=== PATIENT | male | born 1955 | race Caucasian/White ===

== ENCOUNTER 2018-09-26 19:56 | Outpatient (REF) | payer OTHER, SELFPAY ==
[2018-09-26 20:46] LABS: ALT 50 U/L (12-78); AST 29 U/L (15-37); Albumin 3.8 g/dL (3.4-5.0); Alkaline Phosphatase 61 U/L (46-116); Anion Gap 8.4 mmol/L (3-11); BUN 19 mg/dL (7-18); Bilirubin, Total 0.9 mg/dL (0.2-1.0); CO2 28.6 mmol/L (21.0-32.0); Calcium 8.9 mg/dL (8.5-10.1); Chloride 103 mmol/L (98-107); Cholesterol 204 mg/dL (50-200); Glucose 102 mg/dL (70-100); HDL Cholesterol 45 mg/dL (40-60); LDL CHOLESTEROL 140 mg/dL (<100); Potassium 4.4 mmol/L (3.5-5.1); Sodium 140 mmol/L (136-145); Total Protein 7.5 g/dL (6.4-8.2); Triglyceride 103 mg/dL (30-150)
[2018-09-28 10:45] LABS: PSA, Screening 2.3 ng/ml (0-4.5)
== END 2018-09-26 20:16 ==
LOC: NCHCN 19:56
PROVIDERS: PCP Specialist/Technologist Athletic Trainer; Visit Provider Specialist/Technologist Athletic Trainer
DX: Z00.00 Encounter for general adult medical examination without abnormal findings (principal); Z13.220 Encounter for screening for lipoid disorders; Z13.228 Encounter for screening for other metabolic disorders; Z12.5 Encounter for screening for malignant neoplasm of prostate; E66.9 Obesity, unspecified
CPT/HCPCS: 80053; 80061; 83721; 84153

== ENCOUNTER 2019-05-07 14:11 | Outpatient (REF) | payer OTHER, SELFPAY ==
[2019-05-07 22:21] LABS: HCT 44.8 % (40.0-50.0); HGB 14.9 g/dL (13.5-17.5); Mean Corp. HGB Concentration 33.3 g/dL (32.0-36.0); Mean Corpuscular Hemoglobin 31.3 pg (27.0-33.0); Mean Corpuscular Volume 94.1 fL (80-95); Mean Platelet Volume 9.6 fL (8.0-11.0); Platelet Count 324 x1000/uL (130-400); RBC 4.76 m/cumm (4.50-6.00); White Blood Cell Count 6.45 k/cumm (4.4-10.8)
[2019-05-07 23:23] LABS: ALT 46 U/L (16-63); AST 19 U/L (15-37); Albumin 3.9 g/dL (3.4-5.0); Alkaline Phosphatase 84 U/L (46-116); Anion Gap 9.1 mmol/L (3-11); BUN 14 mg/dL (7-18); Bilirubin, Total 0.5 mg/dL (0.2-1.0); CO2 24.9 mmol/L (21.0-32.0); CREATININE 0.86 mg/dL (0.70-1.30); Calcium 8.9 mg/dL (8.5-10.1); Calculated LDL 111 mg/dL; Chloride 105 mmol/L (98-107); Cholesterol 202 mg/dL (50-200); Glucose 105 mg/dL (70-100); HDL Cholesterol 40 mg/dL (40-60); Magnesium 1.7 mg/dL (1.8-2.4); Potassium 4.1 mmol/L (3.5-5.1); Sodium 139 mmol/L (136-145); Total Protein 7.3 g/dL (6.4-8.2); Triglyceride 258 mg/dL (30-150)
[2019-05-09 11:04] LABS: PSA, Screening 1.4 ng/ml (0-4.5)
== END 2019-05-07 14:31 ==
LOC: NCHCN 14:11
PROVIDERS: PCP Specialist/Technologist Athletic Trainer; Visit Provider Specialist/Technologist Athletic Trainer
DX: Z00.00 Encounter for general adult medical examination without abnormal findings (principal); Z13.228 Encounter for screening for other metabolic disorders; Z13.0 Encounter for screening for diseases of the blood and blood-forming organs and certain disorders involving the immune mechanism; Z13.220 Encounter for screening for lipoid disorders; Z12.5 Encounter for screening for malignant neoplasm of prostate
CPT/HCPCS: 80053; 80061; 84153; 85027; 83735

== ENCOUNTER 2019-10-16 12:13 | Outpatient (REF) | payer BC, SELFPAY ==
[2019-10-17 11:59] LABS: Campylobacter PCR Negative (Negative); Salmonella PCR Negative (Negative); Shiga Toxin PCR Negative (Negative); Shigella/Enteroinvasive Ecoli Negative (Negative)
== END 2019-10-16 12:33 ==
LOC: NCHCN 12:13
PROVIDERS: PCP Specialist/Technologist Athletic Trainer; Visit Provider Family Medicine
DX: R19.7 Diarrhea, unspecified (principal)
CPT/HCPCS: 87505; 87324

== ENCOUNTER 2021-03-12 06:21 | Emergency (ER) | payer BC, SELFPAY ==
[2021-03-12] VITALS (19 sets, daily range): BP systolic 123–145; BP diastolic 70–109; PULSE 52–89; RESP 10–18; TEMP 36.5; O2SAT 97–100
--- NOTE | 2021-03-12 06:30 | DI.CT_ITS ---
Exam(s) CT CHEST/ABD/PEL W EXAM: CT CHEST/ABD/PEL W CLINICAL HISTORY: fall, pain. TECHNIQUE: Imaging Protocol: Axial computed tomography images with coronal and sagittal reformatted images were created and reviewed CONTRAST MATERIAL: Intravenous: Omnipaque 350 Contrast volume:100 ml Oral: no COMPARISON: No exams were available for comparison FINDINGS: CHEST: Tracheobronchial tree: Patent where visualized. Mediastinum and Katrina: No dominant adenopathy or fluid collection. Pulmonary parenchyma: No consolidation or dominant measurable mass. Pleura: No effusion or pneumothorax. Lymph nodes: Within normal limits. Aorta: Thoracic portion non-dilated. Heart: Normal size. Bones: Unremarkable for age. Degenerative changes and mild scoliosis. No lytic or blastic lesions. ABDOMEN: Liver: Normal density. No measurable mass. Gallbladder and biliary tract: No radiodense calculus or dilation. Pancreas: Normal density, no abnormal calcifications or inflammatory process. Spleen: Normal. Kidneys: Normal size, contour and axis. No radiodense stones or obstructive uropathy. Cyst lower bhanu e left kidney. No masses seen. Adrenal glands: No masses seen. Aorta: Abdominal portion non-dilated. Lymph nodes: Within normal limits. Soft tissues: Unremarkable. PELVIS: Bladder: Symmetric distention, no gross wall thickening. Bowel: No obstruction or bowel wall thickening. Appendix normal. Peritoneal cavity: No ascites, collection or mesenteric inflammatory response. Bones: Unremarkable for age.. Degenerative changes. No evidence of fracture. Reproductive organs: Mildly enlarged prostate. Soft tissues: Fat in both inguinal canals. IMPRESSION: No acute abnormality in the chest abdomen or pelvis.. RADIATION DOSE DELIVERED: Total DLP DATA REPOSITORY: All CT scans at this facility are submitted to the National Radiology Data Registry (NRDR) Dose Index Registry (DIR) with the [employer] (A[employer]). RADIATION OPTIMIZATION: All CT scans at this facility use at least one of these dose optimization te chniques: automated exposure control; mA and/or kV adjustment per patient size (includes targeted exa ms where dose is matched to clinical indication); or iterative reconstruction.
--- NOTE | 2021-03-12 06:30 | DI.RAD_ITS ---
Exam(s) XR ELBOW LT COMPLETE EXAM: XR ELBOW LT COMPLETE CLINICAL HISTORY: fall, pain and swelling. TECHNIQUE: 2D digital imaging was performed. COMPARISON: No exams were available for comparison FINDINGS: BONES: No acute fracture is present. No bony destructive lesion is seen. Small spur posterior olecr anon. JOINTS: The elbow is normally aligned. No joint effusion is seen. SOFT TISSUE: Posterior soft tissue swelling. IMPRESSION: No acute bony abnormality.. DATA REPOSITORY: RADIATION DOSE DELIVERED:
--- NOTE | 2021-03-12 06:30 | DI.CT_ITS ---
Exam(s) CT HEAD CERVICAL SPINE WO EXAM: CT HEAD CERVICAL SPINE WO CLINICAL HISTORY: fall, pain at thoracic and low back. TECHNIQUE: Imaging Protocol: Axial computed tomography images with coronal and sagittal reformatted images were created and reviewed COMPARISON: No exams were available for comparison FINDINGS: Head CT Ventricles and Extra axial spaces: Normal in size and morphology for the patient's age. Hemorrhage: None. Cerebral parenchyma: Normal. Midline shift: None. Brainstem/Cerebellum: Normal. Calvarium: Normal. Visualized Paranasal sinuses/Mastoids: Clear. Scalp swelling in the high left parietal region. Cervical Spine CT BONES: Vertebral body heights are maintained. Alignment is normal. There is no evidence of acute frac ture. Degenerative disc changes and facet degenerative changes are seen . SOFT TISSUES: No paraspinal hematoma. The airway appears intact. No pneumothorax is seen at the lung apices. IMPRESSION: Head CT: No acute intracranial abnormality. C-spine CT: Degenerative changes, no acute abnormality. RADIATION DOSE DELIVERED: 1,605.8mGy.cm Total DLP DATA REPOSITORY: All CT scans at this facility are submitted to the National Radiology Data Registry (NRDR) Dose Index Registry (DIR) with the [employer] (ACR). RADIATION OPTIMIZATION: All CT scans at this facility use at least one of these dose optimization te chniques: automated exposure control; mA and/or kV adjustment per patient size (includes targeted exa ms where dose is matched to clinical indication); or iterative reconstruction.
--- NOTE | 2021-03-12 06:40 | ED.GENADUL_ITS ---
Discharge Plan Disposition Patient Disposition: HOME Condition: Stable Discharge Details Clinical Impression: Fall at home, Abrasion of head, Closed head injury without loss of consciousness, Abrasion of back, Contusion of back, Contusion of left elbow Primary Care Provider: Duane Bro ED Provider: Dawna Schwab Home Meds and New Rx's Prescriptions: No Action No Known Home Meds RF: 0 Discharge Instructions Instructions: Head Injury (ED), Contusion in Adults (ED), Abrasion (ED), Fall Prevention (ED) Additional Instructions: Drink plenty of fluids and get plenty of rest. Alternate tylenol and motrin as needed and directed for pain. Follow-up with your primary care doctor in 1 week. Return to the emergency department with any worsening or new concerning symptoms. Discharge Data Discharge Physician: Dawna Schwab Medical Decision Making <Federico Mathis MD - Last Filed: 03/12/21 06:45> This is a 65-year-old male who states he therapy use the washroom at home this evening, accidentally stepped out over his stairwell and fell down 14 steps, striking his head and back on the way. He denies loss of consciousness. He has full recall of the event. He came to the hospital with his and ambulated on his own. Patient is well-appearing and interactive. His exam reveals an abrasion on his occiput, patient is swelling to the left elbow, abrasion and pain with palpation of his posterior thorax. Patient IV access established, he had taken acetaminophen at home, was given a small fluid bolus and referred for CT images & radiographs of the left elbow. As he presented just prior to change of shift, patient was signed out to Dr. Schwab. Please see her note regarding details of final impression and disposition. <Dawna Schwab DO - Last Filed: 03/12/21 11:32> 0730 --please see Dr. Mathis's note for additional presentation, exam and plan. Case endorsed to follow-up on imaging and final disposition. Patient states his main complaint of pain is midline upper back. Denies headache at this time. He appears comfortable and breathing normally. He took Tylenol at 3:30 AM. We will give IV Tylenol. 0920 --Imaging reviewed and negative. Labs also done on arrival and note a white blood cell count of 14 which may be a stress response. He has no fever or other acute infectious complaints and appears nontoxic. Remainder of labs unremarkable. Patient reassessed and he feels much better. Patient was able to ambulate and feels good to go home. Advised to follow up with the primary care doctor for re-evaluation. Usual and customary return precautions given prior to discharge. Medical Records Medical records reviewed: Yes I reviewed the patient's medical records. Imaging Data Radiologic Study: Radiologist's impression: CT HEAD CERVICAL SPINE WO CLINICAL HISTORY: fall, pain at thoracic and low back. TECHNIQUE: Imaging Protocol: Axial computed tomography images with coronal and sagittal reformatted images were created and reviewed COMPARISON: No exams were available for comparison FINDINGS: Head CT Ventricles and Extra axial spaces: Normal in size and morphology for the patient's age. Hemorrhage: None. Cerebral parenchyma: Normal. Midline shift: None. Brainstem/Cerebellum: Normal. Calvarium: Normal. Visualized Paranasal sinuses/Mastoids: Clear. Scalp swelling in the high left parietal region. Cervical Spine CT BONES: Vertebral body heights are maintained. Alignment is normal. There is no evidence of acute fracture. Degenerative disc changes and facet degenerative changes are seen . SOFT TISSUES: No paraspinal hematoma. The airway appears intact. No pneumothorax is seen at the lung apices. IMPRESSION: Head CT: No acute intracranial abnormality. C-spine CT: Degenerative changes, no acute abnormality. XR ELBOW LT COMPLETE CLINICAL HISTORY: fall, pain and swelling. TECHNIQUE: 2D digital imaging was performed. COMPARISON: No exams were available for comparison FINDINGS: BONES: No acute fracture is present. No bony destructive lesion is seen. Small spur posterior olecranon. JOINTS: The elbow is normally aligned. No joint effusion is seen. SOFT TISSUE: Posterior soft tissue swelling. IMPRESSION: No acute bony abnormality. CT CHEST/ABD/PEL W CLINICAL HISTORY: fall, pain. TECHNIQUE: Imaging Protocol: Axial computed tomography images with coronal and sagittal reformatted images were created and reviewed CONTRAST MATERIAL: Intravenous: Omnipaque 350 Contrast volume:100 ml Oral: no COMPARISON: No exams were available for comparison FINDINGS: CHEST: Tracheobronchial tree: Patent where visualized. Mediastinum and Katrina: No dominant adenopathy or fluid collection. Pulmonary parenchyma: No consolidation or dominant measurable mass. Pleura: No effusion or pneumothorax. Lymph nodes: Within normal limits. Aorta: Thoracic portion non-dilated. Heart: Normal size. Bones: Unremarkable for age. Degenerative changes and mild scoliosis. No lytic or blastic lesions. ABDOMEN: Liver: Normal density. No measurable mass. Gallbladder and biliary tract: No radiodense calculus or dilation. Pancreas: Normal density, no abnormal calcifications or inflammatory process. Spleen: Normal. Kidneys: Normal size, contour and axis. No radiodense stones or obstructive uropathy. Cyst lower pole left kidney. No masses seen. Adrenal glands: No masses seen. Aorta: Abdominal portion non-dilated. Lymph nodes: Within normal limits. Soft tissues: Unremarkable. PELVIS: Bladder: Symmetric distention, no gross wall thickening. Bowel: No obstruction or bowel wall thickening. Appendix normal. Peritoneal cavity: No ascites, collection or mesenteric inflammatory response. Bones: Unremarkable for age.. Degenerative changes. No evidence of fracture. Reproductive organs: Mildly enlarged prostate. Soft tissues: Fat in both inguinal canals. IMPRESSION: No acute abnormality in the chest abdomen or pelvis.. CT THORACIC LUMBAR SPINE REC CLINICAL HISTORY: s/p fall, midline back pain TECHNIQUE: Axial, coronal and sagittal images were reconstructed in bone algorithm from the chest abdomen and pelvic CT. COMPARISON: No exams were available for comparison FINDINGS: There is no evidence of fracture in the thoracic or lumbar spine. There are endplate osteophytes throughout the thoracic region. There are small osteo phytes in the lumbar region. The discs are spaces are well maintained. Facet degenerative changes are noted in the lower lumbar spine. There is a mild thoracic scoliosis. IMPRESSION: Degenerative changes. No acute abnormality. Lab Data Lab results reviewed: Yes I reviewed the patient's lab results. Labs: Laboratory Tests Range/Units 03/12/21 03/12/21 06:50 06:50 WBC (4.4-10.8) 10^3/uL 14.05 H RBC (4.36-5.78) 10^6/uL 4.66 Hgb (13.5-17.5) g/dL 14.6 Hct (40.0-50.0) % 44.5 MCV (80-95) fL 95.5 H MCH (27.0-33.0) pg 31.3 MCHC (32.0-36.0) % 32.8 RDW (11.8-14.1) % 13.1 Plt Count (130-400) 10^3/uL 244 MPV (8.0-11.0) fL 8.8 Sodium (136-145) mmol/L 141 Potassium (3.5-5.1) mmol/L 4.1 Chloride (98-107) mmol/L 108 H Carbon Dioxide (21.0-32.0) mmol/L 25.7 Anion Gap (3-11) mmol/L 7.3 BUN (7-18) mg/dL 16 Creatinine (0.70-1.30) mg/dL 1.2 Estimated GFR/1.73 m2 (mL/min/1.73m2) >= 60.00 Glucose (74-106) mg/dL 106 Calcium (8.5-10.1) mg/dL 8.5 Total Bilirubin (0.2-1.0) mg/dL 0.5 AST (15-37) U/L 23 ALT (16-63) U/L 35 Alkaline Phosphatase (46-116) U/L 62 Total Protein (6.4-8.2) g/dL 6.8 Albumin (3.4-5.0) g/dL 3.5 HPI <Federico Mathis MD - Last Filed: 03/12/21 06:45> General Mode of arrival: ambulatory . Date/Time Provider Initiated Documentation: 03/12/21 06:30 . Limitations to Documentation: no limitations . Information obtained by: patient . History of Present Illness 65 year old M presents to the emergency department with the chief complaint of Fall downstairs, back pain, described as moderate, Quality is described as dull and constant, and is localized to the head and back. Patient reports no radiation. Patient started experiencing this minute(s) and it has been constant. No relieving factors improve symptom(s), No exacerbating factors reported . Patient did receive the following treatments prior to arrival, none Related Data Home Medications Medication Instructions Recorded Confirmed Unknown [No Known Home Meds] 11/11/13 11/11/13 Allergies Allergy/AdvReac Type Severity Reaction Status Date / Time No Known Allergies Allergy Unverified 11/11/13 18:06 General Stated Complaint: Trauma JAZZY: 2 Review of Systems <Federico Mathis MD - Last Filed: 03/12/21 06:45> Narrative: No loss of consciousness. Primarily complains of thoracic back pain. No current medications or recent illness. 6 systems reviewed and otherwise negative PFSH <Federico Mathis MD - Last Filed: 03/12/21 06:45> Medical History (Updated 03/12/21 @ 11:31 by Dawna Schwab DO) Colitis Surgical History (Updated 03/12/21 @ 11:31 by Dawna Schwab DO) No significant past surgical history Social History Smoking/Tobacco Use Status: Never Smoking risk assessment performed?: Yes Alcohol Intake: current Alcohol Intake frequency: 3 or more drinks per day Drug use: Never Substance use type: does not use Do you feel safe at home: Yes Do you feel safe in your relationship?: Yes Exam <Federico Mathis MD - Last Filed: 03/12/21 06:45> Narrative Exam Narrative: GEN: awake, alert, oriented 3. Pleasant, well groomed, interactive. HEAD: Normocephalic, abrasion superior occiput, no cephalohematoma ENT: Mucous membranes moist, oropharynx unremarkable, External ear exam unremarkable EYES: PERRL, EOMI NECK: Full ROM, no ANA, no menigismus CHEST/RESP: Nontender, clear to auscultation bilateral, no wheeze/rhonchi/rales CARDIOVASCULAR: RRR, no murmur, rub jesse. 2+ Rad pulse bilateral ABDOMEN: Soft, nontender, no mass. +Bowel sounds Back: Lower left paraspinous abrasion, mid thoracic midline pain without step- off or deformity. EXT: Full ROM, left lateral elbow swelling and tenderness to palpation. The joint is freely mobile. Neuro: Grossly normal neurologic exam, conversant, interactive. Psych: Speech fluent, thoughts congruent, affect normal Course <Federico Mathis MD - Last Filed: 03/12/21 06:45> Vital Signs Vital signs: Vital Signs Temperature 36.5 C 03/12/21 06:36 Pulse 65 03/12/21 06:36 Respiratory Rate 14 03/12/21 06:36 Blood Pressure 140/79 03/12/21 06:36 Pulse Oximetry 98 03/12/21 06:36 Temperature 36.5 C 03/12/21 06:36 Temperature Source Temporal Artery Scan 03/12/21 06:36 Pulse 65 03/12/21 06:36 Respiratory Rate 14 03/12/21 06:36 Blood Pressure 140/79 03/12/21 06:36 Blood Pressure Position Sitting 03/12/21 06:36 Pulse Oximetry 98 03/12/21 06:36 Oxygen Delivery Method Room Air 03/12/21 06:36 Oxygen Flow Rate 0 03/12/21 06:36 Pain Level 6 03/12/21 06:36 Sign Out <Federico Mathis MD - Last Filed: 03/12/21 06:45> Sign Out Data: Sign Out Comment: followup ct and xray imaging Last updated by Federico Mathis MD at 03/12/21 06:50
[2021-03-12] MEDS: Normal Saline 500 ML IV (06:55)
[2021-03-12 07:03] LABS: HCT 44.5 % (40.0-50.0); HGB 14.6 g/dL (13.5-17.5); MCH 31.3 pg (27.0-33.0); MCHC 32.8 % (32.0-36.0); MCV 95.5 fL (80-95); MPV 8.8 fL (8.0-11.0); Platelet Count 244 10^3/uL (130-400); RBC 4.66 10^6/uL (4.36-5.78); RDW 13.1 % (11.8-14.1); RDW-SD 46.5 fL; WBC 14.05 10^3/uL (4.4-10.8)
[2021-03-12 07:19] LABS: ALT 35 U/L (16-63); AST 23 U/L (15-37); Albumin 3.5 g/dL (3.4-5.0); Alkaline Phosphatase 62 U/L (46-116); Anion Gap 7.3 mmol/L (3-11); BUN 16 mg/dL (7-18); Bilirubin, Total 0.5 mg/dL (0.2-1.0); CO2 25.7 mmol/L (21.0-32.0); CREATININE 1.2 mg/dL (0.70-1.30); Calcium 8.5 mg/dL (8.5-10.1); Chloride 108 mmol/L (98-107); Glucose 106 mg/dL (74-106); Potassium 4.1 mmol/L (3.5-5.1); Sodium 141 mmol/L (136-145); Total Protein 6.8 g/dL (6.4-8.2)
--- NOTE | 2021-03-12 07:35 | DI.CT_ITS ---
Exam(s) CT THORACIC LUMBAR SPINE REC EXAM: CT THORACIC LUMBAR SPINE REC CLINICAL HISTORY: s/p fall, midline back pain TECHNIQUE: Axial, coronal and sagittal images were reconstructed in bone algorithm from the chest ab domen and pelvic CT. COMPARISON: No exams were available for comparison FINDINGS: There is no evidence of fracture in the thoracic or lumbar spine. There are endplate osteophytes thr oughout the thoracic region. There are small osteophytes in the lumbar region. The discs are spaces are well maintained. Facet degenerative changes are noted in the lower lumbar spine. There is a mi ld thoracic scoliosis. IMPRESSION: Degenerative changes. No acute abnormality.
[2021-03-12] MEDS: Omnipaque 350 MG/ML 100 ML BTL IV (07:53)
[2021-03-12] MEDS: Normal Saline - Diluent 50 ML VIAL IV (07:53)
[2021-03-12] MEDS: ACETAMINOPHEN 1,000 MG/100 ML BTL 400 MG IVPB (08:44)
== END 2021-03-12 09:52 | disposition home or self-care (01) ==
PROVIDERS: Emergency Medicine; Emergency Provider Physician Assistant; PCP Specialist/Technologist Athletic Trainer
DX: S00.81XA Abrasion of other part of head, initial encounter (principal); S30.810A Abrasion of lower back and pelvis, initial encounter; S50.02XA Contusion of left elbow, initial encounter; W10.8XXA Fall (on) (from) other stairs and steps, initial encounter
CPT/HCPCS: 74177; 80053; 85027; 96361; 96365; 99285; 70450; 71260; 72125; 73080; 99284; J0131; J3490

== ENCOUNTER 2021-06-25 10:36 | Outpatient (REF) | payer BC, SELFPAY ==
[2021-06-25 14:26] LABS: Anion Gap 6.1 mmol/L (3-11); BUN 17 mg/dL (7-18); CO2 28.9 mmol/L (21.0-32.0); CREATININE 0.9 mg/dL (0.70-1.30); Calcium 8.8 mg/dL (8.5-10.1); Chloride 108 mmol/L (98-107); Glucose 101 mg/dL (74-106); Potassium 4.8 mmol/L (3.5-5.1); Sodium 143 mmol/L (136-145)
[2021-06-25 14:54] LABS: Hemoglobin A1C 5.4 % (<5.7)
[2021-06-28 01:53] LABS: Vitamin D 25 Total 22.2 ng/mL (30-100)
== END 2021-06-25 10:37 | disposition home or self-care (01) ==
LOC: NCHCN 10:36
PROVIDERS: PCP Specialist/Technologist Athletic Trainer; Visit Provider Nurse Practitioner Family
DX: R73.03 Prediabetes (principal); E55.9 Vitamin D deficiency, unspecified; Z00.00 Encounter for general adult medical examination without abnormal findings
CPT/HCPCS: 80048; 82306; 83036

== ENCOUNTER 2021-11-26 10:42 | Outpatient (REF) | payer MEDICARE, BC, SELFPAY ==
[2021-11-26 14:13] LABS: Calculated LDL 157 mg/dL (<100); Cholesterol 243 mg/dL (<200); HDL Cholesterol 51 mg/dL (40-60); Triglyceride 175 mg/dL (<150)
[2021-11-29 06:43] LABS: Vitamin D 25 Total 17.6 ng/mL (30-100)
== END 2021-11-26 10:43 | disposition home or self-care (01) ==
LOC: NCHCN 10:42
PROVIDERS: PCP Specialist/Technologist Athletic Trainer; Visit Provider Nurse Practitioner Family
DX: Z00.00 Encounter for general adult medical examination without abnormal findings (principal); E55.9 Vitamin D deficiency, unspecified
CPT/HCPCS: 80061; 82306

== ENCOUNTER 2022-11-28 12:58 | Outpatient (REF) | payer MEDICARE, BC, SELFPAY ==
[2022-11-28 17:16] LABS: ALT 41 U/L (16-63); AST 26 U/L (15-37); Albumin 3.9 g/dL (3.4-5.0); Alkaline Phosphatase 70 U/L (46-116); Anion Gap 7.3 mmol/L (3-11); BUN 16 mg/dL (7-18); Bilirubin, Total 0.6 mg/dL (0.2-1.0); CO2 29.7 mmol/L (21.0-32.0); CREATININE 1.1 mg/dL (0.70-1.30); Calcium 9.2 mg/dL (8.5-10.1); Calculated LDL 147 mg/dL (<100); Chloride 109 mmol/L (98-107); Cholesterol 237 mg/dL (<200); Estimated GFR 74.04 (mL/min/1.73m2); Glucose 99 mg/dL (74-106); HDL Cholesterol 48 mg/dL (40-60); Potassium 5.2 mmol/L (3.5-5.1); Sodium 146 mmol/L (136-145); Total Protein 7.9 g/dL (6.4-8.2); Triglyceride 214 mg/dL (<150)
[2022-11-28 17:38] LABS: Vitamin D 25 Total 21.9 ng/mL (30-100)
[2022-11-28 17:42] LABS: Hemoglobin A1C 5.9 % (<5.7)
[2022-11-29 18:46] LABS: PSA, Screening 1.1 ng/mL (<=4.5)
== END 2022-11-28 12:59 | disposition home or self-care (01) ==
LOC: NCHCN 12:58
PROVIDERS: PCP Specialist/Technologist Athletic Trainer; Visit Provider Nurse Practitioner Family
DX: E78.5 Hyperlipidemia, unspecified (principal); R73.03 Prediabetes; E55.9 Vitamin D deficiency, unspecified; N40.0 Benign prostatic hyperplasia without lower urinary tract symptoms; Z12.5 Encounter for screening for malignant neoplasm of prostate
CPT/HCPCS: 80053; 80061; 82306; 84153; 83036

== ENCOUNTER 2023-06-19 18:28 | Outpatient (REF) | payer MEDICARE, BC, SELFPAY ==
[2023-06-19 17:26] LABS: ALT 48 U/L (16-63); AST 25 U/L (15-37); Albumin 3.6 g/dL (3.4-5.0); Alkaline Phosphatase 79 U/L (46-116); Anion Gap 8.5 mmol/L (3-11); BUN 14 mg/dL (7-18); Bilirubin, Total 0.5 mg/dL (0.2-1.0); CO2 26.5 mmol/L (21.0-32.0); Calcium 9.3 mg/dL (8.5-10.1); Calculated LDL 126 mg/dL (<100); Chloride 106 mmol/L (98-107); Cholesterol 222 mg/dL (<200); Estimated GFR 83.01 (mL/min/1.73m2); Glucose 120 mg/dL (74-106); HDL Cholesterol 48 mg/dL (40-60); Potassium 3.9 mmol/L (3.5-5.1); Sodium 141 mmol/L (136-145); Total Protein 7.7 g/dL (6.4-8.2); Triglyceride 244 mg/dL (<150)
[2023-06-19 18:22] LABS: Vitamin D 25 Total 24.4 ng/mL (30-100)
== END 2023-06-19 18:29 | disposition home or self-care (01) ==
LOC: NCHCN 18:28
PROVIDERS: PCP Specialist/Technologist Athletic Trainer; Visit Provider Nurse Practitioner Family
DX: E78.5 Hyperlipidemia, unspecified (principal); E55.9 Vitamin D deficiency, unspecified; H61.23 Impacted cerumen, bilateral
CPT/HCPCS: 80053; 80061; 82306

== ENCOUNTER 2023-12-08 11:04 | Outpatient (REF) | payer MEDICARE, BC, SELFPAY ==
[2023-12-08 15:12] LABS: ALT 59 U/L (16-63); AST 38 U/L (15-37); Albumin 3.7 g/dL (3.4-5.0); Alkaline Phosphatase 81 U/L (46-116); Anion Gap 7.8 mmol/L (3-11); BUN 14 mg/dL (7-18); Bilirubin, Total 0.6 mg/dL (0.2-1.0); CO2 28.2 mmol/L (21.0-32.0); Calcium 8.7 mg/dL (8.5-10.1); Chloride 108 mmol/L (98-107); Estimated GFR 82.49 (mL/min/1.73m2); Glucose 104 mg/dL (74-106); Potassium 4.9 mmol/L (3.5-5.1); Sodium 144 mmol/L (136-145); Total Protein 7.5 g/dL (6.4-8.2)
[2023-12-08 15:43] LABS: Vitamin D 25 Total 23.2 ng/mL (30-100)
== END 2023-12-08 11:05 | disposition home or self-care (01) ==
LOC: NCHCN 11:04
PROVIDERS: PCP Specialist/Technologist Athletic Trainer; Visit Provider Nurse Practitioner Family
DX: E55.9 Vitamin D deficiency, unspecified (principal); R73.03 Prediabetes; M10.9 Gout, unspecified
CPT/HCPCS: 80053; 82306; 83036; 84550

== ENCOUNTER 2024-06-03 14:42 | Outpatient (CLI) | payer MEDICARE, BC, SELFPAY ==
--- NOTE | 2024-06-03 | DI.RAD_ITS ---
Exam(s) XR TIB/FIB RT EXAM: XR TIB/FIB RT CLINICAL HISTORY: HX FALLING Z91.81. TECHNIQUE: 2D digital imaging was performed. COMPARISON: No exams were available for comparison FINDINGS: Two views No evidence of fracture. No radiopaque foreign body. No osseous lesions. Bone density normal. IMPRESSION: No acute osseous findings. DATA REPOSITORY: RADIATION DOSE DELIVERED:
== END 2024-06-03 15:02 ==
LOC: DI 14:42
PROVIDERS: PCP Specialist/Technologist Athletic Trainer; Visit Provider Nurse Practitioner Family
DX: Z91.81 History of falling (principal); M79.661 Pain in right lower leg
CPT/HCPCS: 73590

== ENCOUNTER 2024-09-09 01:49 | Outpatient (CLI) | payer MEDICARE, BC, SELFPAY ==
--- NOTE | 2024-09-09 | ETT_ITS ---
APPROVED REPORT Exam: Exercise Treadmill Patient Location: Out-Patient Room/Bed: Stress Nurse: Rani Nixon RN Ordering Provider:HEIDY LANE, Contact Number: [phone] BMI: 36.17 Baseline Rhythm: Sinus Bradycardia Indications: Chest pain Medical History Medical History: HLD, major depression, alcohol dependence, ulcerative colitis, sleep disorder, BPH, veritgo, chest pain, prediabetes, CAP Cardiac Medications: Colchicine, remicade Allergies: Seafood Cardiac Risk Factors: Family hx, HLD, prediabetes, obesity Previous Cardiac Procedures: None Pretest Chest Pain Characteristics: None Exercise History: Sedentary Physical Disabilities: None Lung Sounds: Clear to auscultation Heart Sounds: Regular Stress Test Details Test: Exercise stress testing was performed using a Abhinav protocol. Rest Stress HR Resting HR Supine: 58 bpm Max Heart Rate (APMHR): 152 bpm Resting HR Standin bpm Target HR (85% APMHR): 129 bpm Max HR Achieved: 133 bpm % of APMHR: 88 Recovery HR: 63 bpm HR response to stress: Normal HR response to stress BP Resting BP Supine: 142/92 mmHg Resting BP Standin/82 mmHg Max BP: 160/88 mmHg Recovery BP: 138/94 mmHg BP response to stress: Normal blood pressure response to stress. ECG Resting ECG: Sinus Bradycardia Ectopy: Rare PAC Stress ECG: Sinus Tachycardia ST Change: No significant ST segment changes noted Arrhythmia: Rare PAC's, rare PVC's Recovery ECG: Sinus Rhythm Recovery ST Change: No significant ST segment changes noted Recovery Arrhythmia: Rare PAC's, rare PVC's Clinical Reason for Termination: Target HR Achieved Stress Symptoms: Mild SOB Exercise duration: 05 min57 sec Highest Stage Reached: Stage 2: 2.5 mph at 12% grade. Exercise capacity: 7.05 METs Angina Score: None Bunch Treadmill Score: 5.7 Rate Pressure Product: [id number] Stress ECG Conclusion 1. Resting electrocardiogram showed left anterior fascicular block and late transition 2. Patient exercised on the Abhinav protocol completed a workload of 7 METS 3. Normal heart rate and blood pressure response to exercise. Patient achieved 88% of predicted hear t rate for age 4. There was no electrocardiographic evidence of myocardial ischemia 5. There were no significant dysrhythmias Bunch Treadmill Score is 5.7 which is Low risk. Stress Test Summary STAGE Time (mins) Speed (mph) Grade (%) HR BP SpO2 SYMPTOMS METS Supine 58 148/92 96% Standing 64 112/82 1 3 1.7 10 107 148/84 96% Mild SOB 4.5 2 6 2.5 12 133 7 1 min recovery 107 138/70 98% Mild SOB 3 min recovery 64 160/88 6 min recovery 63 138/94 97%
== END 2024-09-09 02:09 ==
PROVIDERS: PCP Nurse Practitioner Family; Visit Provider Nurse Practitioner Family
DX: R07.9 Chest pain, unspecified (principal)
CPT/HCPCS: 93016; 93018; 93017

== ENCOUNTER 2024-09-27 11:09 | Outpatient (CLI) | payer MEDICARE, BC, SELFPAY ==
--- NOTE | 2024-09-27 11:00 | RT.EKG_ITS ---
APPROVED REPORT Exam: Resting ECG Reason for Exam: baseline Patient Location: O HR:68 bpm ECG Measurements Heart Rate 68 AXIS NM 202 P 15 QRSd 107 QRS -13 QT 388 T 6 QTc 413 Conclusion Sinus rhythm...normal P axis, V-rate 50- 99 Left axis Poor R wave progression
== END 2024-09-27 11:10 | disposition home or self-care (01) ==
LOC: DI.CARD 11:11
PROVIDERS: PCP Nurse Practitioner Family; Referring Provider Nurse Practitioner Family; Visit Provider Internal Medicine Cardiovascular Disease
DX: R07.9 Chest pain, unspecified (principal)
CPT/HCPCS: 93010

== ENCOUNTER → 2024-09-27 11:09 | Outpatient (BNVA) | payer MEDICARE, BC, SELFPAY | PROVIDERS: PCP Nurse Practitioner Family; Referring Provider Nurse Practitioner Family; Visit Provider Internal Medicine Cardiovascular Disease | DX: I44.4 Left anterior fascicular block (principal); R94.31 Abnormal electrocardiogram [ECG] [EKG]; E78.5 Hyperlipidemia, unspecified | CPT/HCPCS: 93005; 99214 ==

== ENCOUNTER 2024-12-13 12:08 | Outpatient (REF) | payer MEDICARE, BC, SELFPAY ==
[2024-12-13 15:47] LABS: HCT 44.8 % (40.0-50.0); HGB 14.4 g/dL (13.5-17.5); MCH 31.2 pg (27.0-33.0); MCHC 32.1 % (32.0-36.0); MCV 97 fL (80-95); MPV 9.6 fL (8.0-11.0); Platelet Count 245 10^3/uL (130-400); RBC 4.62 10^6/uL (4.36-5.78); RDW 13.1 % (11.8-14.1); RDW-SD 46.7 fL; WBC 7.92 10^3/uL (4.4-10.8)
[2024-12-13 15:58] LABS: Prothrombin Time 10.4 sec (9.1-11.1)
[2024-12-13 16:28] LABS: ALT 47 U/L (16-63); AST 25 U/L (15-37); Albumin 3.7 g/dL (3.4-5.0); Alkaline Phosphatase 83 U/L (46-116); Anion Gap 9.2 mmol/L (3-11); BUN 14 mg/dL (7-18); Bilirubin, Total 0.5 mg/dL (0.2-1.0); CO2 27.8 mmol/L (21.0-32.0); Calcium 9.2 mg/dL (8.5-10.1); Calculated LDL 122 mg/dL (<100); Chloride 107 mmol/L (98-107); Cholesterol 206 mg/dL (<200); Estimated GFR 81.98 (mL/min/1.73m2); Glucose 115 mg/dL (74-106); HDL Cholesterol 45 mg/dL (>or=40); Potassium 4.3 mmol/L (3.5-5.1); Sodium 144 mmol/L (136-145); Total Protein 7.4 g/dL (6.4-8.2); Triglyceride 196 mg/dL (<150); Vitamin D 25 Total 36 ng/mL (30-100)
[2024-12-13 17:20] LABS: Hemoglobin A1C 5.8 % (<5.7)
[2024-12-16 09:09] LABS: HBs Antibody, Quant <3.1 mIU/mL (See Note); Hepatitis B Surface Ab Negative (See Note)
[2024-12-16 10:11] LABS: Hepatitis A Antibody IgM Negative (Negative); Hepatitis B Core Antibody Negative (Negative); Hepatitis B surface Ag Negative (Negative); Hepatitis C Ab w Rflx HCV PCR Negative (Negative)
== END 2024-12-13 12:09 | disposition home or self-care (01) ==
LOC: NCHCN 12:08
PROVIDERS: PCP Nurse Practitioner Family; Visit Provider Nurse Practitioner Family
DX: K76.0 Fatty (change of) liver, not elsewhere classified (principal); R73.03 Prediabetes; E55.9 Vitamin D deficiency, unspecified
CPT/HCPCS: 80053; 80061; 82306; 85027; 86704; 86706; 86709; 86803; 87340; 83036; 85610

== ENCOUNTER 2025-06-19 10:28 | Outpatient (REF) | payer MEDICARE, BC, SELFPAY ==
[2025-06-19 16:37] LABS: Calculated LDL 110 mg/dL (<100); Cholesterol 186 mg/dL (<200); HDL Cholesterol 53 mg/dL (>or=40); Triglyceride 119 mg/dL (<150)
[2025-06-19 16:54] LABS: Hemoglobin A1C 6.0 % (<5.7)
== END 2025-06-19 10:29 | disposition home or self-care (01) ==
LOC: NCHCN 10:28
PROVIDERS: PCP Nurse Practitioner Family; Visit Provider Nurse Practitioner Family
DX: K76.0 Fatty (change of) liver, not elsewhere classified (principal); R73.03 Prediabetes
CPT/HCPCS: 80061; 83036